=== PATIENT | female | born 1985 | race Caucasian/White ===

== ENCOUNTER 2024-10-05 13:46 | Outpatient (OUT) | payer SELFPAY ==
--- OUTSIDE RECORDS SUMMARY | 2024-10-05 13:49 | XMS_ITS | Encounter Summary ---
Author Organization [facility] Address [address] [place] [address] Care Team Providers Care Methods Specialist Engineer Name Role Phone Lara Pop DO Primary Care Provider [phone] Shelley Lazo MD Primary Care Provider [phone] Patty Nelson EQUIPMENT MAINT TECH Unavailable [phone] Encounter Details Date Type Department Care Team (Late st Contact Info) Description 12/16/2022 Abstract [facility] [address] [place] [address] Lara Pop DO [address] [facility] [place] [address] [place] [address] Social History Tobacco Use Types Packs/Day Years Used Date Smoking Tobacco: Every Day Cigarettes Smokeless Tobacco: Never Alcohol Use Standard Drinks/Week Comments Yes 1 (1 standard drink = 0.6 oz pur e alcohol) Humiliation, Afraid, Rape, and Kick questionnair e Answer Date Recorded Within the last year, have y ou been afraid of your partner or ex-partner? No 11/23/2022 Within the last year, have y ou been humiliated or emotionally abused in other ways by your partner or ex-partner? No Within the last year, have y ou been kicked, hit, slapped, or otherwise physically hurt by your partner or ex-partner? No 11/23/2022 Within the last year, have y ou been raped or forced to have any kind of sexual activity by your partner or ex-partner? No 11/23/2022 Social Connection and Isolat ion Panel [NHANES] Answer Date Recorded In a typical week, how many times do you talk on the phone with family, friends, or neighbors? Twice a week 11/23/2022 How often do you get togethe r with friends or relatives? More than three times a week 11/23/2022 How often do you attend chur or gnosticism services? Never 11/23/2022 Do you belong to any clubs o r organizations such as mandaen groups, unions, fraternal or athletic groups, or school groups? No 11/23/2022 How often do you attend meet ings of the clubs or organizations you belong to? Never 11/23/2022 Are you , , di vorced, , never , or living with a partner? 11/23/2022 AUDIT-C Answer Date Recorded Q1: How often do you have a drink containing alc ohol? Monthly or less 11/23/2022 Q2: How many drinks containi ng alcohol do you have on a typical day when you are drinking? 1 or 2 11/23/2022 Q3: How often do you have si x or more drinks on one occasion? Never 11/23/2022 Overall Financial Resource Strain (CARDIA) Answe r Date Recorded How hard is it for you to pa y for the very basics like food, housing, medical care, and heating? Not very hard 11/23/2022 PHQ-2 Answer Date Recorded Patient Health Questionnaire-2 Score 0 11/24/2022 [facility] - Occupational Stress Questionnaire Answer Date Recorded Do you feel stress - tense, restless, nervous, or anxious, or unable to sleep at night because your mind is troubled all the time - these days? Only a little 11/23/2022 Exercise Vital Sign Answer Date Recorde d On average, how many days pe r week do you engage in moderate to strenuous exercise (like a brisk walk)? 2 days 11/23/2022 On average, how many minutes do you engage in exercise at this level? 20 min 11/23/2022 Hunger Vital Sign Answer Date Recorded Within the past 12 months, y ou worried that your food would run out before you got the money to buy more. Never true 11/24/19 23 Within the past 12 months, t he food you bought just didn't last and you didn't have money to get more. Never true 11/23/2022 PRAPARE - Transportation Answer Date Re corded In the past 12 months, has l ack of transportation kept you from medical appointments or from getting medications? No 11/14 In the past 12 months, has l ack of transportation kept you from meetings, work, or from getting things needed for daily living? No 11/23/2022 Housing Stability Vital Sign Answer Ajswinder e Recorded In the last 12 months, was t here a time when you were not able to pay the mortgage or rent on time? No 11/23/2022 In the last 12 months, how many places have you lived? 1 11/23/2022 In the last 12 months, was t here a time when you did not have a steady place to sleep or slept in a [place] [facility] [place] (including now)? No 11/23/2022 Comments Unknown Sex and Gender Information Value Date Recorded Sex Assigned at Not on file Legal Sex Female 9:27 PM EDT Gender Identity Not on file Sexual Orientation Not on file COVID-19 Exposure Response Date Recorded In the last 10 days, have yo u been in contact with someone who was confirmed or suspected to have Coronavirus/COVID-19? No / Unsure 11/23/2022 3:05 PM EDT documented as of this encounter Plan of Treatment Not on file documented as of this encounter Visit Diagnoses Not on filedocumented in this encounter Care Teams Methods Specialist Engineer Relationship Specialty Start Date End Date Lara Pop DO PCP - General Family Medicine 11/19/22 06/24/23 Shelley Lazo MD [address] [facility] [place] [address] PCP - General Family Medicine 07/19/23 Patty Nelson NP [address] [place] [address] Nurse Practitioner Family Medicine 07/19/23 documented as of this encounter
--- OUTSIDE RECORDS SUMMARY | 2024-10-05 13:49 | XMS_ITS | Clinical Summary ---
Author Organization [facility] Healthcare Address [address] [place] [address] Care Team Providers Care Hourly Sign Language Interpreter Name Role Phone Shelley Lazo MD Primary Care Provider [phone] Patty Nelson DOCUMENT IMPROVEMENT SPECIALIST Unavailable [phone] Allergies No known active allergies Medications Levonorgestrel 20 MCG/DAY intrauterine device 1 each by Intrauterine route. Active albuterol HFA 90 mcg/act inhalerIndicatio ns:Cough, unspecified type,SOB (shortness of breath) Inhale 2 puffs every 4 (four) hours if needed for wheezing or shortness of breath 18 g 4 Active cetirizine (ZyrTEC) 10 MG tablet Take 1 tablet by mouth Daily Active escitalopram (Lexapro) 20 MG tabletIndication s:Moderate episode of recurrent major depressive disorder (CMS/HCC) Take 1 tablet (20 mg) by mouth Daily 90 tablet 3 4 025 Active ALPRAZolam (Xanax) 0.25 MG tabletIndication s:Grief (CMS/HCC),Genera lized anxiety disorder (CMS/HCC) Take 1 tablet (0.25 mg) by mouth Daily as needed for anxiety for up to 7 days 7 tablet 4 Active metFORMIN (Glucophage) 1000 MG tabletIndication s:PCOS (polycystic ovarian syndrome) Take 1 tablet (1,000 mg) by mouth in the morning and 1 tablet (1,000 mg) in the evening. Take with meals. 180 tablet 3 4 025 Active Active Problems Problem Noted Date Diagnosed Date History of smoking 08/01/2024 Chronic post-traumatic stress disorder (PTSD) Major depressive disorder, r ecurrent episode with anxious distress 04/03/2024 Gastroesophageal reflux disease 11/24/2022 Leukocytosis 11/24/2022 Morbid (severe) obesity due to excess calories 0 11/24/2022 PCOS (polycystic ovarian syndrome) 11/24/2022 Biliary colic 06/05/2022 Generalized anxiety disorder 12/19/2021 IUD (intrauterine device) in place 12/19/2021 Overview (11/24/2022): Mirena IUD inserted 12/19/21 by Dali De Santiago CNP Prediabetes 12/19/2021 Resolved Problems Problem Noted Date Diagnosed Date Resolved Date Cholelithiasis without obstruction 11/24/2022 08/01/2024 Cigarette nicotine dependenc e without complication 11/24/2022 03/06/2024 BMI 40.0-44.9, adult 12/19/2021 025 Smoker 11/27/2021 07/16/2023 Encounters Date Type Department Care Team Description 09/07/2024 Clinisync Result Encounter [facility] External Department Unsolicited Marilny Cain NP 08/17/2024 Telephone [facility] [address] [place] [address] Patty Nelson NP Results 08/08/2024 Telephone [facility] [address] [place] [address] Karon Howell MA 08/01/2024 9:00 AM EDT Office Visit [facility] [address] [place] [address] Patty Nelson NP Wellness examination (Primary Dx); Screening for thyroid disorder; Family history of thyroid disease; Gastroesophageal reflux disease without esophagitis; Other elevated white blood cell (WBC) count; Prediabetes; Impaired fasting glucose; Screening for lipid disorders; IUD (intrauterine device) in place; PCOS (polycystic ovarian syndrome); Morbid (severe) obesity due to excess calories (CMS/HCC); Major depressive disorder, recurrent episode with anxious distress (CMS/HCC); Generalized anxiety disorder (CMS/HCC) ; Chronic post-traumatic stress disorder (PTSD) (CMS/HCC); History of smoking 08/01/2024 Bamboo flowsheet [facility] [address] [place] [address] Patty Nelson NP 08/01/2024 Travel 07/10/2024 9:00 AM EST Office Visit [facility] [address] [place] [id number] Pump, Janeen, DOCUMENT IMPROVEMENT SPECIALIST Lower respiratory tract infection (Primary Dx); Generalized anxiety disorder (CMS/HCC) ; Major depressive disorder, recurrent episode with anxious distress (CMS/HCC) 07/10/2024 Bamboo flowsheet [facility] [address] [place] [id number] Pump, Janeen, DOCUMENT IMPROVEMENT SPECIALIST 07/10/2024 Travel from Last 3 Months Immunizations Immunization Administration Dates Next Due Hep B, adult 10/15/2022 Influenza, Injectable, MDCK, preservative free 1 Influenza, injectable, quadrivalent, preservativ e free 01/15/2023 Moderna Bivalent Booster Vaccination 10/26/2022, 09/28/2022 Tdap 10/15/2022 Family History Medical History Relation Name Comments Asthma Brother Qamar Asthma Daughter Martha Diabetes Father Geovanni Hypertension Father Geovanni Diabetes Maternal Grandfather Carlito Depression Mother Zara Diabetes Mother Zara Relation Name Status Comments Brother Qamar 1 Daughter Martha 2 Father Geovanni Alive Maternal Grandfather Carlito Mother Zara Alive Son 1 Social History Tobacco Use Types Packs/Day Years Used Date Smoking Tobacco: Former Cigarettes Q uit: 03/06/2023 Smokeless Tobacco: Never Alcohol Use Standard Drinks/Week [...] How often do you attend chur or mandaeism services? Never 11/23/2022 Do you belong to any clubs o r organizations such as congregation groups, unions, fraternal or athletic groups, or school groups? No 11/23/2022 How often do you attend meet ings of the clubs or organizations you belong to? Never 11/23/2022 Are you , , di vorced, , never , or living with a partner? 11/23/2022 AUDIT-C Answer Date Recorded Q1: How often do you have a drink containing alc ohol? Monthly or less 07/16/2023 Q2: How many drinks containi ng alcohol do you have on a typical day when you are drinking? 1 or 2 07/16/2023 Q3: How often do you have si x or more drinks on one occasion? Never 07/16/2023 Overall Financial Resource Strain (CARDIA) Answe r Date Recorded How hard is it for you to pa y for the very basics like food, housing, medical care, and heating? Not very hard 11/23/2022 PHQ-2 Answer Date Recorded Patient Health Questionnaire-2 Score 0 08/01/2024 [facility] [place] [facility] - Occupational Stress Questionnaire Answer Date Recorded [...] No 11/23/2022 Housing Stability Vital Sign Answer Jaswinder e Recorded In the last 12 months, [...] place to sleep or slept in a fci (including now)? No 11/23/2022 Comments Unknown Sex and Gender Information Value Date Recorded Sex Assigned at Not on file Legal Sex Female 9:27 PM EDT Gender Identity Not on file Sexual Orientation Not on file Last Filed Vital Signs Vital Sign Reading Time Taken Comments Blood Pressure 112/70 08/01/2024 8:57 AM EDT Pulse 68 08/01/2024 8:57 AM EDT Temperature 36.8 C (98.2 F) 06/26/2024 3:49 PM EST Respiratory Rate 18 01/19/2023 1:56 PM EDT Oxygen Saturation 98% 06/26/2024 3:4 9 PM EST room air, resting Inhaled Oxygen Concentration - - Weight 127 kg (279 lb 12.8 oz) 08/01/2024 8:57 AM EDT Height 165.1 cm (5' 5 ) 01/19/2023 1:56 PM EDT Body Mass Index 46.56 01/19/2023 1:56 PM EDT Plan of Treatment Health Maintenance Due Date Last Done Comments Pap Smear 12/18/2007 Cervical Cancer Screening 04/28/2026 HPV/Cotest 04/28/2026 04/28/2021 Influenza Vaccine Completed 02/16/2024, 01/15/2023 Goals Goal Patient Goal Type Associated Problems Recent Progress Patient-Stated? Author Help patient manage antidepressant medication Care Plan Patient on antidepressant monitoring plan No Patty Nelson NP Procedures Procedure Name Priority Date/Time Associated Diagnosis Comments QUANTIFERON-TB GOLD PLUS Routine 09/07/2024 11:00 AM EDT VARICELLA-ZOSTER V AB, IGG Routine 09/07/2024 11:00 AM EDT HEPATITIS B SURF AB QUANT Routine 09/07/2024 11:00 AM EDT MEASLES/MUMPS/RUBELLA IMMUNITY Routine 09/07/2024 11:00 AM EDT LIPID PANEL Routine 08/01/2024 9:21 AM EDT Wellness examination Screening for lipid disorders T4, FREE Routine 08/01/2024 9:21 AM EDT Wellness examination Screening for thyroid disorder Family history of thyroid disease TSH Routine 08/01/2024 9:21 AM EDT Wellness examination Screening for thyroid disorder Family history of thyroid disease COMPREHENSIVE METABOLIC PANEL Routine 08/01/2024 9:21 AM EDT Wellness examination HEMOGLOBIN A1C Routine 08/01/2024 9:21 AM EDT Wellness examination Prediabetes Impaired fasting glucose CBC Routine 08/01/2024 9:21 AM EDT Wellness examination Gastroesophageal reflux disease without esophagitis Other elevated white blood cell (WBC) count Q - THINPREP(R) TIS AND HPV MRNA E6/E7 RFL HPV 16,18/45 Routine 04/28/2021 from Last 3 Months or Most Recently Relevant to Health Maintenance Results * VARICELLA-ZOSTER V AB, IGG (09/07/2024 11:00 AM EDT) Pathologist [facility] VARICELLAZOST ER V AB, IGG Reactive Non Reactive TB Comment: Please note reference interval change A Reactive result is considered evidence of immunity to VZV. Reactive indicates that VZV IgG was detected consistent with previous infection and/or vaccination. A Non Reactive result indicates that VZV IgG was not detected suggesting that immunity has not been acquired. Performed at: [address] [id number] Musculoskeletal Physiotherapist: Jacky London PhD, Phone: [phone] 09/07/2024 11:0 0 AM EDT 09/07/2024 11:18 AM EDT Narrative CLINISYNC - 09/08/2024 8:11 AM EDT Marilyn Cain NP LAB BLOOD ORDERABLES Final Re sult [facility] * QUANTIFERON-TB GOLD PLUS (09/07/2024 11:00 AM EDT) Pathologist [facility] QUANTIFERON INCUBATION . TB Comment: Incubation performed. Reference Range: . QUANTIFERON-TB GOLD PLUS Negative Negative TB Comment: No response to M tuberculosis antigens detected. Infection with M tuberculosis is unlikely, but high risk individuals should be considered for additional testing (ATS/IDSA/CDC Clinical Practice Guidelines, 2017). The reference range is an Antigen minus Nil result of <0.35 IU/mL. Chemiluminescence immunoassay methodology Performed at: [address] [id number] Musculoskeletal Physiotherapist: Jacky London PhD, Phone: [phone] QUANTIFERON CRITERIA Comment . TB Comment: QuantiFERON-TB Gold Plus is a qualitative indirect test for M tuberculosis infection (including disease) and is intended for use in conjunction with risk assessment, radiography, and other medical and diagnostic evaluations. The QuantiFERON-TB Gold Plus result is determined by subtracting the Nil value from either TB antigen (Ag) value. The Mitogen tube serves as a control for the test. QUANTIFERON TB1 AG VALUE 0.08 . IU/mL TBH QUANTIFERON TB2 AG VALUE 0.08 . IU/mL TBH QUANTIFERON NIL VALUE 0.09 . IU/mL TBH QUANTIFERON MITOGEN VALUE >10.00 . IU/mL TBH 09/07/2024 11:0 0 AM EDT 09/07/2024 11:18 AM EDT Narrative CLINISYNC - 09/09/2024 6:08 AM EDT Marilyn Cain NP LAB BLOOD ORDERABLES Final Re sult Performing Organization Address [facility] Co de Phone Number [facility] * MEASLES/MUMPS/RUBELLA IMMUNITY (09/07/2024 11:00 AM EDT) [facility] RUBELLA ANTIBODIES, IGG 6.03 Immune >0.99 index TBH Comment: Non-immune <0.90 Equivocal 0.90 - 0.99 Immune >0.99 MEASLES ANTIBODIES, IGG >300.0 Immune >16.4 AU/mL TB Comment: Negative <13.5 Equivocal 13.5 - 16.4 Positive >16.4 Presence of antibodies to Rubeola is presumptive evidence of immunity except when acute infection is suspected. MUMPS ABS, IGG 65.3 Immune >10.9 AU/mL TB Comment: Negative <9.0 Equivocal 9.0 - 10.9 Positive >10.9 A positive result generally indicates past exposure to Mumps virus or previous vaccination. Performed at: [address] [id number] Musculoskeletal Physiotherapist: Jacky London PhD, Phone: [phone] 09/07/2024 11:0 0 AM EDT 09/07/2024 11:18 AM EDT Narrative CLINISYNC - 09/08/2024 8:11 AM EDT Marilyn Cain NP LAB BLOOD ORDERABLES Final Re sult Performing Organization Address [facility] Co de Phone Number [facility] * (ABNORMAL) HEPATITIS B SURF AB QUANT (09/07/2024 11:00 AM EDT) [facility] HEPATITIS B SURF AB QUANT <3.5(A) Immunity>1 0 mIU/mL [facility] Comment: Status of Immunity Anti-HBs Level Inconsistent with Immunity 0.0 - 10.0 Consistent with Immunity >10.0 Performed at: - [address] [id number] Musculoskeletal Physiotherapist: Jacky London PhD, Phone: [phone] 09/07/2024 11:0 0 AM EDT 09/07/2024 11:18 AM EDT Narrative CHIP - 09/08/2024 8:11 AM EDT us Marilyn Cain DOCUMENT IMPROVEMENT SPECIALIST LAB BLOOD ORDERABLES Final Re sult [facility] * CBC (08/01/2024 9:21 AM EDT) [facility] WHITE BLOOD CELL COUNT 8.2 3.8 - 10.8 Thousand/u L [facility] RED BLOOD CELL COUNT 4.74 3.80 - 5.10 Million/uL [facility] HEMOGLOBIN 13.7 11.7 - 15.5 g/dL [facility] HEMATOCRIT 42.1 35.0 - 45.0 % [facility] MCV 88.8 80.0 - 100.0 fL [facility] MCH 28.9 27.0 - 33.0 pg [facility] MCHC 32.5 32.0 - 36.0 g/dL [facility] Comment: For adults, a slight decrease in the calculated MCHC value (in the range of 30 to 32 g/dL) is most likely not clinically significant; however, it should be interpreted with caution in correlation with other red cell parameters and the patient's clinical condition. RDW 13.7 11.0 - 15.0 % [facility] PLATELET COUNT 378 140 - 400 Thousand/u L [facility] MPV 9.1 7.5 - 12.5 fL [facility] Blood Venous blood specimen / Unknown 08/01/2024 9:21 AM EDT 08/01/2024 3:15 PM EDT Narrative Resulting Agency Comment Performing Organization Information Site ID: QTW Name: [facility] Address: [address] [place] [phone] Director: Demetrice Navarro Patty Nelson NP LAB BLOOD ORDERABLES Final Result Performing Organization Address City/[facility]/ZIP Co de Phone Number [facility] * TSH (08/01/2024 9:21 AM EDT) Pathologist [facility] TSH 1.94 mIU/L [facility] Comment: Reference Range > or = 20 Years 0.40-4.50 Ranges First trimester 0.26-2.66 Second trimester 0.55-2.73 Third trimester 0.43-2.91 Blood Venous blood specimen / Unknown 08/01/2024 9:21 AM EDT 08/01/2024 3:15 PM EDT Narrative Resulting Agency Comment Performing Organization Information Site ID: QPT Name: [facility] Address: [address] [place] [address], [address] [place] [phone] Director: Cecil Singh MD Patty Nelson NP LAB BLOOD ORDERABLES Final Result Performing Organization Address [facility] de Phone Number [facility] * T4, free (08/01/2024 9:21 AM EDT) Pathologist [facility] T4, FREE 0.9 0.8 - 1.8 ng/dL [facility] Blood Venous blood specimen / Unknown 08/01/2024 9:21 AM EDT 08/01/2024 3:15 PM EDT Narrative Resulting Agency Comment Performing Organization Information Site ID: QPT Name: [facility] Address: [address] [place] [address], [address] [place] [phone] Director: Cecil Singh MD Patty Nelson NP LAB BLOOD ORDERABLES Final Result Performing Organization Address City/[facility]/ZIP Co de Phone Number [facility] * (ABNORMAL) Hemoglobin A1c (08/01/2024 9:21 AM EDT) Hemoglobin A1C 5.9(H) <5.7 % of total Hgb [facility] Comment: For someone without known diabetes, a hemoglobin A1c value between 5.7% and 6.4% is consistent with prediabetes and should be confirmed with a follow-up test. For someone with known diabetes, a value <7% indicates that their diabetes is well controlled. A1c targets should be individualized based on duration of diabetes, age, comorbid conditions, and other considerations. This assay result is consistent with an increased risk of diabetes. Currently, no consensus exists regarding use of hemoglobin A1c for diagnosis of diabetes for children. Blood Venous blood specimen / Unknown 08/01/2024 9:21 AM EDT 08/01/2024 3:15 PM EDT Narrative Resulting Agency Comment Performing Organization Information Site ID: QPT Name: [facility] Address: [address] [place] [address], [address] [place] [phone] Director: Cecil Singh MD Patty Nelson NP LAB BLOOD ORDERABLES Final Result [facility] * (ABNORMAL) Lipid panel (08/01/2024 9:21 AM EDT) Pathologist [facility] CHOLESTEROL, TOTAL 136 <200 mg/dL [facility] HDL CHOLESTEROL 45(L) > OR = 50 mg/dL [facility] TRIGLYCERIDES 71 <150 mg/dL [facility] LDL-CHOLESTEROL 76 mg/dL (calc) [facility] Comment: Reference range: <100 Desirable range <100 mg/dL for primary prevention; <70 mg/dL for patients with CHD or diabetic patients with > or = 2 CHD risk factors. LDL-C is now calculated using the Harrison-oLri calculation, which is a validated novel method providing better accuracy than the Friedewald equation in the estimation of LDL-C. Harrison SS et al. MARK. 2013;310(19): 6894-1989 (http://education.DataMotion.Numonyx/faq/KEZ025) CHOL/HDLC RATIO 3.0 <5.0 (calc) [facility] NON HDL CHOLESTEROL 91 <130 mg/dL (calc) [facility] Comment: For patients with diabetes plus 1 major ASCVD risk factor, treating to a non-HDL-C goal of <100 mg/dL (LDL-C of <70 mg/dL) is considered a therapeutic option. Blood Venous blood specimen / Unknown 08/01/2024 9:21 AM EDT 08/01/2024 3:15 PM EDT Narrative Resulting Agency Comment Performing Organization Information Site ID: QPT Name: [facility] Address: [address] [place] [address], [address] [place] [phone] Director: Cecil Singh MD Patty Nelson NP LAB BLOOD ORDERABLES Final Result [facility] * (ABNORMAL) Comprehensive metabolic panel (08/01/2024 9:21 AM EDT) Glucose 101(H) 65 - 99 mg/dL [facility] Comment: Fasting reference interval For someone without known diabetes, a glucose value between 100 and 125 mg/dL is consistent with prediabetes and should be confirmed with a follow-up test. BUN 12 7 - 25 mg/dL [facility] Creatinine 0.71 0.50 - 0.97 mg/dL [facility] EGFR 112 > OR = 60 mL/min/1. 73m2 [facility] BUN/CREATININE RATIO SEE NOTE: 6 - 22 (calc) [facility] Comment: Not Reported: BUN and Creatinine are within reference range. Sodium 138 135 - 146 mmol/L [facility] Potassium, Bld 4.5 3.5 - 5.3 mmol/L [facility] Chloride 104 98 - 110 mmol/L [facility] Carbon Dioxide 29 20 - 32 mmol/L [facility] Calcium 8.7 8.6 - 10.2 mg/dL [facility] PROTEIN, TOTAL 6.7 6.1 - 8.1 g/dL [facility] ALBUMIN 3.8 3.6 - 5.1 g/dL [facility] GLOBULIN 2.9 1.9 - 3.7 g/dL (calc) [facility] ALBUMIN/GLOBULIN RATIO 1.3 1.0 - 2.5 (calc) [facility] BILIRUBIN, TOTAL 0.4 0.2 - 1.2 mg/dL [facility] ALKALINE PHOSPHATASE 63 31 - 125 U/L [facility] AST 15 10 - 30 U/L [facility] ALT 22 6 - 29 U/L [facility] Blood Venous blood specimen / Unknown 08/01/2024 9:21 AM EDT 08/01/2024 3:15 PM EDT Narrative Resulting Agency Comment Performing Organization Information Site ID: QTW Name: [facility] Address: [place] [address] Director: Demetrice Navarro Patty Nelson DOCUMENT IMPROVEMENT SPECIALIST LAB BLOOD ORDERABLES Final Result [facility] * Q - THINPREP(R) TIS AND HPV MRNA E6/E7 RFL HPV 16,18/45 (04/28/2021) CLINICAL INFORMATION: None given [facility] LMP: None given [facility] PREV. PAP: None given [facility] PREV. BX: None given [facility] SOURCE: None given [facility] STATEMENT OF ADEQUACY: SEE NOTE [facility] Comment: Satisfactory for evaluation. Endocervical/transformation zone component present. INTERPRETATION/RE SULT: Negative for intraepithelial lesion or malignancy. [facility] COMMENT: This Pap test has been evaluated with computer assisted technology. [facility] ELEMENTARY ELL TEACHER: SEE NOTE NO [facility] Comment: CYNDEE MEYER(ASCP) CT screening location: [place] [address]. COMMENT SEE NOTE [facility] Comment: EXPLANATORY NOTE: The Pap is a screening test for cervical cancer. It is not a diagnostic test and is subject to false negative and false positive results. It is most reliable when a satisfactory sample, regularly obtained, is submitted with relevant clinical findings and history, and when the Pap result is evaluated along with historic and current clinical information. HPV MRNA E6/E7 Not Detected Not Detected [facility] Comment: Methodology: Composite Worker-Mediated Amplification This assay detects E6/E7 viral messenger RNA (mRNA) from 14 high-risk HPV types (16,18,31,33,35,39,45,51,52,56,58,59,66,68). The analytical performance characteristics of this assay have been determined by [facility]. The modifications have not been cleared or approved by the FDA. This assay has been validated pursuant to the CLIA regulations and is used for clinical purposes. For additional information, please refer to http://education.[employer].com/faq/KIW731f3 (This link if provided for information/ educational purposes only.) 04/28/2021 Lara Pop DO [facility] Final Result [facility] from Last 3 Months or Most Recently Relevant to Health Maintenance Additional Health Concerns Active Problems Noted Date Diagnosed Date Patient on antidepressant monitoring plan 2023 Insurance BCBS Care Teams Hourly Sign Language Interpreter Relationship Specialty Start Date End Date Shelley Lazo MD [address] [place] [address] PCP - General Family Medicine 07/19/23 Patty Nelson NP [address] [place] [address] Nurse Practitioner Family Medicine 07/19/23
[2024-10-05] MEDS: [UNRECOGNIZED DRUG - OTHER] IM (14:00)
== END 2024-10-05 13:47 | disposition home or self-care (01) ==
LOC: VACCLI 13:47
PROVIDERS: Visit Provider Nurse Practitioner Family
DX: Z23 Encounter for immunization (principal)
CPT/HCPCS: 90746

== ENCOUNTER 2024-11-15 13:50 | Outpatient (OUT) | payer OTHER, SELFPAY ==
--- OUTSIDE RECORDS SUMMARY | 2024-11-03 11:00 | XMS_ITS | Encounter Summary ---
Author Organization [facility] Address [address] [place] [address] Care Team Providers Care Assistant Spa Director Name Role Phone Shelley Lazo MD Primary Care Provider [phone] Patty Nelson LEAD ASSISTANT MANAGER Unavailable [phone] Reason for Visit * Reason Comments Follow-up Weight Encounter Details Date Type Department Care Team (Late st Contact Info) Description 11/03/2024 11:00 AM EDT Office Visit [facility] [address] [place] [id number] Patty Nelson NP [address] [place], [place] [id number] Encounter for weight loss counseling (Primary Dx); PCOS (polycystic ovarian syndrome); Morbid (severe) obesity due to excess calories ([facility]); Unable to lose weight; Skin tag Social History Tobacco Use Types Packs/Day Years [...] How often do you attend chur or taoist services? Never 11/23/2022 Do you belong to any clubs o r organizations such as hinduism groups, unions, fraternal or athletic groups, or [...] Recorded Patient Health Questionnaire-2 Score 0 08/01/2024 [facility] - Occupational Stress [...] place to sleep or slept in a chcf (including now)? No 11/23/2022 Comments Unknown Sex and Gender Information Value Date Recorded Sex Assigned at Not on file Legal Sex Female 9:27 PM EDT Gender Identity Not on file Sexual Orientation Not on file documented as of this encounter Last Filed Vital Signs Vital Sign Reading Time Taken Comments Blood Pressure 124/80 11/03/2024 10:58 AM EDT Pulse 68 11/03/2024 10:58 AM EDT Temperature - - Respiratory Rate - - Oxygen Saturation - - Inhaled Oxygen Concentration - - Weight 121 kg (266 lb 3.2 oz) 11/03/2024 10:58 A M EDT Height - - Body Mass Index 44.3 01/19/2023 1:56 PM EDT documented in this encounter Progress Notes * Patty Nelson NP - 11/03/2024 11:00 AM EDT Images from the original note were not included. Aaliyah Lee is a 38 y.o. female presents with chief complaint of Follow- up (Weight ) HPI: HPI History of Present Illness The patient is a 38-year-old female who presents to the office for a 1-month follow-up on Adipex. 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 Her weight was 279.8 pounds on 08/01/2024 and is now down to 266.2 pounds. She reports an improvement in stress levels and has been maintaining a healthy diet, although adjusting to midnight shifts remains challenging. Her daily intake includes a microwavable meal, apple sauce, peanut butter crackers, and ample water. She monitors her physical activity using a watch, recording over 12,000 steps on her busiest day. No adverse effects from the medication, such as palpitations or chest pain, have been experienced. Her sleep pattern is generally good, and she takes her medication upon waking, regardless of the time. She consumes 1 to 2 sodas daily and occasionally uses Monster energy drinks during her night shifts. Flavored water enhancers are also used. No mood disturbances are reported, and she believes her current mood is the best it has been in a long time. Her next weight loss goal is to achieve a weight below 250 pounds. Exercise has not yet been incorporated into her routine. Increased water intake has been beneficial in preventing dry mouth at work. She has expressed interest in having a skin tag removed from her right armpit, which she frequentlycatches while shaving. She is not currently on any anticoagulant therapy. She also has a skin tag on her scalp, which she has been treating with a freeze- away product. SOCIAL HISTORY She works as a registered nurse. SUBJECTIVE: MEDICATIONS: Current Outpatient Medications Medication Instructions albuterol HFA 90 mcg/act inhaler 2 puffs, Inhalation, Every 4 hours PRN ALPRAZolam (XANAX) 0.25 mg, Oral, Daily PRN cetirizine (ZyrTEC) 10 MG tablet 1 tablet, Daily escitalopram (LEXAPRO) 20 mg, Oral, Daily Levonorgestrel 20 MCG/DAY intrauterine device 1 each metFORMIN (GLUCOPHAGE) 1,000 mg, Oral, 2 times daily with meals phentermine (ADIPEX-P) 37.5 mg, Oral, Daily before breakfast ALLERGIES: No Known Allergies History: Past Medical History: Diagnosis Date Anxiety Cholelithiasis without obstruction 11/24/2022 Cigarette nicotine dependence without complication 11/24/2022 GERD (gastroesophageal reflux disease) Obesity Past Surgical History: Procedure Laterality Date CHOLECYSTECTOMY Family History Problem Relation Name Age of Onset Diabetes Mother Zara Depression Mother Zara Diabetes Father Geovanni Hypertension Father Geovanni Asthma Brother Qamar Asthma Daughter Martha Diabetes Maternal Grandfather Carlito Social History Socioeconomic History Marital status: Spouse name: Not on file Number of children: Not on file Years of education: Not on file Highest education level: Not on file Occupational History Not on file Tobacco Use Smoking status: Former Current packs/day: 0.00 Types: Cigarettes Quit date: 03/06/2023 Years since quittin.6 Smokeless tobacco: Never Vaping Use Vaping status: Never Used Substance and Sexual Activity Alcohol use: Yes Alcohol/week: 1.0 standard drink of alcohol Types: 1 Standard drinks or equivalent per week Drug use: Never Sexual activity: Yes Partners: Male control/protection: I.U.D. Other Topics Concern Not on file Social History Narrative Not on file Social Drivers of Health Financial Resource Strain: Low Risk (11/23/2022) Overall Financial Resource Strain (CARDIA) Difficulty of Paying Living Expenses: Not very hard Food Insecurity: No Food Insecurity (08/07/2024) Received from [facility] Hunger Screening Within the past 12 months we worried whether our food would run out before we got money to buy more.: Never True Within the past 12 months the food we bought just didn't last and we didn't have money to get more.: Never True Transportation Needs: No Transportation Needs (11/23/2022) PRAPARE - Transportation Lack of Transportation (Medical): No Lack of Transportation (Non-Medical): No Physical Activity: Insufficiently Active (11/23/2022) Exercise Vital Sign Days of Exercise per Week: 2 days Minutes of Exercise per Session: 20 min Stress: No Stress Concern Present (11/23/2022) [place] [employer] [facility] Occupational [facility] - Occupational Stress Questionnaire Feeling of Stress : Only a little Social Connections: Moderately Isolated (11/23/2022) Social Connection and Isolation Panel [NHANES] Frequency of Communication with Friends and Family: Twice a week Frequency of Social Gatherings with Friends and Family: More than three times a week Attends Muslim Services: Never Active Member of Clubs or Organizations: No Attends Club or Organization Meetings: Never Marital Status: Intimate Partner Violence: Not At Risk (11/23/2022) Humiliation, Afraid, Rape, and Kick questionnaire Fear of Current or Ex-Partner: No Emotionally Abused: No Physically Abused: No Sexually Abused: No Housing Stability: Low Risk (11/23/2022) Housing Stability Vital Sign Unable to Pay for Housing in the Last Year: No Number of Places Lived in the Last Year: 1 Unstable Housing in the Last Year: No I have reviewed and reconciled the history and medication list with the patient today. REVIEW OF SYMPTOMS: Review of Systems Constitutional: Negative for activity change, appetite change and fatigue. HENT: Negative. Respiratory: Negative for cough, shortness of breath and wheezing. Cardiovascular: Negative for chest pain and palpitations. Gastrointestinal: Negative for abdominal pain, diarrhea and nausea. Genitourinary: Negative. Musculoskeletal: Negative. Skin: Negative for color change, rash and wound. Admits skin tag to right armpit that gets caught on razor when shaving Psychiatric/Behavioral: Negative. OBJECTIVE: Results 04/03/2024 11:00 AM 05/02/2024 9:18 AM 06/26/2024 3:49 PM 07/10/2024 9:01 AM 08/01/2024 8:57 AM 10/06/2024 7:00 AM 11/03/2024 10:58 AM Vitals BMI 47.33 kg/m2 47.06 kg/m2 46.16 kg/m2 46.56 kg/m2 44.3 kg/m2 BSA (m2) 2.43 m2 2.42 m2 2.4 m2 2.41 m2 2.36 m2 Systolic 130 126 136 116 112 110 124 Diastolic 74 84 86 82 70 80 80 Heart Rate 76 80 107 88 68 68 SpO2 98 % Temp 98.2 °F Weight (lb) 284.4 282.8 277.4 279.8 266.2 Visit Report Report Report Report Report Report Report Physical Exam Vitals reviewed. Constitutional: General: She is not in acute distress. Appearance: Normal appearance. She is obese. She is not ill-appearing. Cardiovascular: Rate and Rhythm: Normal rate and regular rhythm. Heart sounds: No murmur heard. Pulmonary: Effort: Pulmonary effort is normal. No respiratory distress. Breath sounds: Normal breath sounds. No wheezing or rhonchi. Abdominal: General: Bowel sounds are normal. There is no distension. Palpations: Abdomen is soft. Tenderness: There is no abdominal tenderness. Musculoskeletal: Right lower leg: No edema. Left lower leg: No edema. Skin: General: Skin is warm and dry. Findings: No rash. Comments: Skin tag to right axilla, no surrounding erythema noted Neurological: Mental Status: She is alert. Mental status is at baseline. Psychiatric: Mood and Affect: Mood normal. Behavior: Behavior normal. Thought Content: Thought content normal. Judgment: Judgment normal. Physical Exam ASSESSMENT AND PLAN: Assessment/Plan Diagnoses and all orders for this visit: Encounter for weight loss counseling - phentermine (Adipex-P) 37.5 MG tablet; Take 1 tablet (37.5 mg) by mouth in the morning. Take before meals. PCOS (polycystic ovarian syndrome) - phentermine (Adipex-P) 37.5 MG tablet; Take 1 tablet (37.5 mg) by mouth in the morning. Take before meals. Morbid (severe) obesity due to excess calories ([facility]) - phentermine (Adipex-P) 37.5 MG tablet; Take 1 tablet (37.5 mg) by mouth in the morning. Take before meals. Unable to lose weight - phentermine (Adipex-P) 37.5 MG tablet; Take 1 tablet (37.5 mg) by mouth in the morning. Take before meals. Skin tag - Tissue exam; Future Assessment & Plan 1. Weight management. - Her weight has decreased from 279.8 to 266.2 since 08/01/2024. - Reports no negative side effects from the medication, such as heart racing or chest pain. Blood pressure is stable at 124/80. - Advised to continue her current regimen of Adipex, taking it when she wakes up regardless of her work schedule. Encouraged to start working out and reduce soda intake to help achieve her goal of getting under 250 pounds. - Prescription refill for Adipex will be provided. OARRS reviewed, no red flags, rx sent. 2. Skin tag. - A skin tag in her right armpit was excised during this visit. - Specimen will be sent to the pathology lab for analysis. - Advised to apply antibiotic cream tonight and tomorrow, and to clean the area with soap and water. - If there is any bleeding, she should change the dressing. Follow-up The patient will follow up in 1 month. PROCEDURE Procedure: Skin tag excision, right armpit All questions were answered and agreement to proceed was given after the following Pre-Procedure details were reviewed: - Risks and Benefits: Bleeding, infection, and the benefit of removing the skin tag for comfort andease of shaving. - Consent: Verbal consent obtained. Intra-Procedure: - Site Preparation: Cleaned with alcohol. - Anesthesia: None used as patient preferred to proceed without numbing. - Medication: Antibiotic cream applied post-excision. - Hemostasis: Pressure applied to control bleeding. - Dressing: Bandage applied. Post-Procedure: - Tolerance Level: Patient tolerated the procedure well, reporting minimal discomfort. - Home Care Instructions: Change the dressing as needed, apply antibiotic cream tonight and tomorrow, and clean with soap and water. 30 minutes spent reviewing chart, assessing patient and documenting. Follow up in about 4 weeks (around 12/01/2024) for med k. documented in this encounter Plan of Treatment Upcoming Encounters Date Type Department Care Team (Late st Contact Info) Description 12/01/2024 3:00 PM EDT Office Visit [facility] [address] [place] [address] Patty Nelson NP [address] [place] [address] documented as of this encounter Goals Goal Patient Goal Type Associated Problems Recent Progress Patient-Stated? Author Help patient manage antidepressant medication Care Plan Patient on antidepressant monitoring plan No Patty Nelson NP documented as of this encounter Procedures Procedure Name Priority Date/Time Associated Diagnosis Comments TISSUE EXAM Routine 11/03/2024 11:21 AM EDT Skin tag documented in this encounter Results * Tissue exam (11/03/2024 11:21 AM EDT) PATHOLOGIST [facility] Comment: Daniel Carmen MD Board certified in Dermatopathology, Cytopathology, Anatomic Pathology, and Clinical Pathology (electronic signature) For questions regarding this report call [facility] [phone] Pathologist Release Date/Time: 11/07/2024 02:40PM A SOURCE [facility] Comment:RIGHT ARMPIT A PROCEDURE BIOPSY [facility] A GROSS DESCRIPTION [facility] Comment: Received in 10% neutral buffered formalin is a biopsy of tissue measuring 5 x 4 x 2 mm. It was inked, bisected, and submitted into 1 tissue block. This gross description meets regulatory standards for positive identification using two patient identifiers. /bjm/is A MICRO DESCRIPTION [facility] Comment: The specimen displays a small pedunculated papule with variable epidermal acanthosis and lack of adnexal structures within the dermal stroma. /bjm A DIAGNOSIS [facility] Comment: FIBROEPITHELIAL POLYP/SKIN TAG Tissue 11/03/2024 11:2 1 AM EDT 11/04/2024 3:17 AM EDT Narrative Resulting Agency Comment Performing Organization Information Site ID: [id number] Name: [facility] Address: [address] [place] [address], [address] [place] [address] Director: Daniel Carmen Patty Nelson NP LAB PATHOLOGY ORDERABLES F inal Result [facility] documented in this encounter Visit Diagnoses Diagnosis Encounter for weight loss counseling- Primary PCOS (polycystic ovarian syndrome) Polycystic ovaries Morbid (severe) obesity due to excess calories ([facility]) Unable to lose weight Skin tag Unspecified hypertrophic and atrophic condition of skin documented in this encounter Additional Health Concerns Active Problems Noted Date Diagnosed Date Patient on antidepressant monitoring plan 2023 Assessment Noted Time PHQ-9 Depression Total Score: 13 04/03/ 024 11:00 AM EST documented as of this encounter Care Teams Assistant Spa Director Relationship Specialty Start Date End Date Shelley Lazo MD PCP - General Family Medicine 07/19/23 Patty Nelson NP [address] [place] [address] Nurse Practitioner Family Medicine 07/19/23 documented as of this encounter
--- OUTSIDE RECORDS SUMMARY | 2024-11-15 13:54 | XMS_ITS | Encounter Summary ---
Author Organization [facility] Address [address] [place] [address] Care Team Providers Care Ornamental Ironworking Supervisor Name Role Phone Shelley Lazo MD Primary Care Provider [phone] Patty Nelson TALEND DEVELOPER Unavailable [phone] Encounter Details Date Type Department Care Team (Latest Contact Info) Description 11/03/2024 Travel Social History Tobacco Use Types Packs/Day Years [...] 11/23/2022 How often do you attend chur ch or zoroastrianism services? Never 11/23/2022 Do you belong to any clubs o r organizations such as episcopal groups, unions, fraternal or athletic groups, or [...] Recorded Patient Health Questionnaire-2 Score 0 08/01/2024 [facility] of Occupat ional Health - Occupational Stress [...] on file documented as of this encounter Plan of Treatment Upcoming Encounters Date Type Department Care Team (Late st Contact Info) Description 12/01/2024 3:00 PM EDT Office Visit [facility] [address] [place] [address] Patty Nelson NP [address] [place], [place] [id number] documented as of this encounter Goals Goal Patient Goal Type Associated Problems Recent Progress Patient-Stated? Author Help patient manage antidepressant medication Care Plan Patient on antidepressant monitoring plan No Patty Nelson NP documented as of this encounter Visit Diagnoses Not on filedocumented in this encounter Additional Health Concerns Active Problems Noted Date Diagnosed Date Patient on antidepressant monitoring plan 2023 Assessment Noted Time PHQ-9 Depression Total Score: 13 04/03/ 024 11:00 AM EST documented as of this encounter Care Teams Ornamental Ironworking Supervisor Relationship Specialty Start Date End Date Shelley Lazo MD PCP - General Family Medicine 07/19/23 Patty Nelson NP [address] [place], [place] [id number] Nurse Practitioner Family Medicine 07/19/23 documented as of this encounter
--- OUTSIDE RECORDS SUMMARY | 2024-11-15 13:54 | XMS_ITS | Encounter Summary ---
Author Organization [facility] Address [address] [place] [address] Care Team Providers Care Arts And Crafts Instructor Name Role Phone Shelley Lazo MD Primary Care Provider [phone] Patty Nelson STUDENT LIFE ADVISOR Unavailable [phone] Encounter Details Date Type Department Care Team (Late st Contact Info) Description 11/07/2024 Results Follow-Up [facility] [address] [place] [address] Mireya Strickland LPN Social History Tobacco Use Types Packs/Day Years [...] often do you attend chur ch or latter-day services? Never 11/23/2022 Do you belong to any clubs o r organizations such as buddhist groups, unions, fraternal or athletic groups, or [...] Patient Health Questionnaire-2 Score 0 08/01/2024 [facility] of Occupat ional Health - Occupational Stress [...] place to sleep or slept in a fdc (including now)? No 11/23/2022 Comments Unknown Sex and Gender Information Value Date Recorded Sex Assigned at Not on file Legal Sex Female 9:27 PM EDT Gender Identity Not on file Sexual Orientation Not on file documented as of this encounter Miscellaneous Notes * Telephone Encounter - Mireya Strickland LPN - 11/07/2024 3:41 PM EDT Pt notified. * Telephone Encounter - Mireya Strickland LPN - 11/07/2024 3:40 PM EDT ----- Message from Patty Nelson sent at 11/07/2024 3:34 PM EDT ----- Please let patient know skin tag biopsy did not show concerns. ----- Message ----- From: [facility] Results In Sent: 11/07/2024 3:19 PM EDT To: Patty Nelson NP documented in this encounter Plan of Treatment Upcoming Encounters Date Type Department Care Team (Late st Contact Info) Description 12/01/2024 3:00 PM EDT Office Visit [facility] [address] [facility] [place] [address] Patty Nelson NP [address] [place] [address] documented as of this encounter Goals Goal [...] Noted Time PHQ-9 Depression Total Score: 13 024 11:00 AM EST documented as of this encounter Care Teams Arts And Crafts Instructor Relationship Specialty Start Date End Date Clifton, Shelley Gifford MD PCP - General Family Medicine 07/19/23 Patty Nelson NP [address] [place] [address] Nurse Practitioner Family Medicine 07/19/23 documented as of this encounter
--- OUTSIDE RECORDS SUMMARY | 2024-11-15 13:54 | XMS_ITS | Clinical Summary ---
Author Organization [facility] tem Address [id number] [place] [address] Care Team Providers Care Autocad Operator Name Role Phone NelsonJanes truongantha GWEN Primary Care Provider Allergies No known active allergies Medications * This document contains information received from the source organization and may not represent a complete record from that organization. escitalopram (LEXAPRO) 10 mg tablet Take 2 tablets (20 mg total) by mouth in the morning. Active levonorgestreL (MIRENA) 20 mcg/24 hours (7 yrs) 52 mg IUD 1 each by intrauterine route once. Active ibuprofen (MOTRIN) 600 mg tablet Take 1 tablet (600 mg total) by mouth every 6 (six) hours. 30 tablet Active cetirizine (ZyrTEC) 10 MG chewable tablet Chew 1 tablet (10 mg total) and swallow in the morning. Active Active Problems Problem Noted Date Diagnosed Date Major depressive disorder, r ecurrent episode with anxious distress 04/03/2024 Chronic post-traumatic stress disorder (PTSD) PCOS (polycystic ovarian syndrome) 11/24/2022 Biliary colic 06/05/2022 Prediabetes 12/19/2021 BMI 40.0-44.9, adult 12/19/2021 IUD (intrauterine device) in place 12/19/2021 Overview (12/19/2021): Mirena IUD inserted 12/19/21 by Dali De Santiago CNP Smoker 11/27/2021 Resolved Problems Problem Noted Date Diagnosed Date Resolved Date Generalized anxiety disorder 12/19/2021 04/03/2024 Family History Medical History Relation Name Comments Diabetes Father Hypertension Father Heart attack Maternal Grandmother Diabetes Mother Hypertension Mother Thyroid Issues Mother Relation Name Status Comments Father Alive Maternal Grandmother Mother Alive Social History Tobacco Use Types Packs/Day Years Used Date Smoking Tobacco: Former Cigarettes 0.3 16 Q uit: 02/2023 Smokeless Tobacco: Never Tobacco Cessation:Counseling Given: Not Answered Alcohol Use Standard Drinks/Week Comments No 0 (1 standard drink = 0.6 oz pur e alcohol) AUDIT-C Answer Date Recorded Frequency of Alcohol Consumption Never 07/07/2018 Average Number of Drinks Not on file 019 Frequency of Binge Drinking Not on file 06/18 Childcare Answer Date Recorded Childcare Unknown 10/26/2018 Employment Answer Date Recorded Employment Unknown 10/26/2018 Hunger Screening Answer Date Recorded Within the past 12 months we worried whether our food would run out before we got money to buy more. Never True 08/07/2024 Within the past 12 months th e food we bought just didn't last and we didn't have money to get more. Never True 08/07/2024 Purpose - Life Answer Date Recorded Purpose and direction in life Unknown Comments No Sex and Gender Information Value Date Recorded Sex Assigned at Not on file Legal Sex Female 11:35 AM EDT Gender Identity Not on file Sexual Orientation Not on file Last Filed Vital Signs Vital Sign Reading Time Taken Comments Blood Pressure 131/75 08/07/2024 10:02 PM EDT Pulse 76 08/07/2024 10:02 PM EDT Temperature 36.7 C (98.1 F) 08/07/2024 10:02 PM EDT Respiratory Rate 14 08/07/2024 10:02 PM EDT Oxygen Saturation 100% 08/07/2024 10:02 PM EDT Inhaled Oxygen Concentration - - Weight 126.6 kg (279 lb) 08/07/2024 7:06 PM EDT Height 165.1 cm (5' 5 ) 08/07/2024 7:06 PM EDT Body Mass Index 46.43 08/07/2024 7:06 PM EDT Plan of Treatment Health Maintenance Due Date Last Done Comments Depression Screening 1998 Adult BMI Follow Up Plan 2004 Pap Smear 12/18/2007 COVID-19 Vaccine (3 - 2024-25 season) 01/16/202404/2023, 09/28/2022 Influenza Vaccine 01/15/2025 02/16/2024, 01/15/2023 Adult BMI Screening 08/07/2025 08/07/2024 Tobacco Screening 08/07/2025 08/07/2024 DTaP,Tdap and Td Vaccines (2 - Td or Tdap) 10/15/2032 10/15/2022 Medical Devices Not on file Insurance ANTHEM Care Teams Autocad Operator Relationship Specialty Start Date End Date Patty Nelson APRN-CNP [address] [place] [address] PCP - General Family Medicine 02/15/24
--- OUTSIDE RECORDS SUMMARY | 2024-11-15 13:54 | XMS_ITS | Clinical Summary ---
Author Organization [facility] Address [address] [place] [address] Care Team Providers Care Housing Assistant Name Role Phone Shelley Lazo MD Primary Care Provider [phone] Patty Nelson CUTTING AND PRINTING MACHINE OPERATOR Unavailable [phone] Allergies No known active allergies Medications Levonorgestrel 20 MCG/DAY intrauterine device 1 each by Intrauterine route. Active albuterol HFA 90 mcg/act inhalerIndicatio ns:Cough, unspecified type,SOB (shortness of breath) Inhale 2 puffs every 4 (four) hours if needed for wheezing or shortness of breath 18 g 10/12/19 24 Active cetirizine (ZyrTEC) 10 MG tablet Take 1 tablet by mouth Daily Active escitalopram (Lexapro) 20 MG tabletIndication s:Moderate episode of recurrent major depressive disorder (HCC) Take 1 tablet (20 mg) by mouth Daily 90 tablet 3 03/06/20 24 025 Active ALPRAZolam (Xanax) 0.25 MG tabletIndication s:Grief,Generali zed anxiety disorder Take 1 tablet (0.25 mg) by mouth Daily as needed for anxiety for up to 7 days 7 tablet 03/23/20 24 Active metFORMIN (Glucophage) 1000 MG tabletIndication s:PCOS (polycystic ovarian syndrome) Take 1 tablet (1,000 mg) by mouth in the morning and 1 tablet (1,000 mg) in the evening. Take with meals. 180 tablet 3 05/04/20 24 025 Active phentermine (Adipex-P) 37.5 MG tabletIndication s:PCOS (polycystic ovarian syndrome),Morbid (severe) obesity due to excess calories (CMS-HCC),Encoun ter for weight loss counseling,Unabl e to lose weight Take 1 tablet (37.5 mg) by mouth in the morning. Take before meals. 30 tablet 11/04/19 25 025 Active phentermine (Adipex-P) 37.5 MG tabletIndication s:PCOS (polycystic ovarian syndrome),Morbid (severe) obesity due to excess calories (CMS-HCC),Encoun ter for weight loss counseling,Unabl e to lose weight Take 1 tablet (37.5 mg) by mouth in the morning. Take before meals. 30 tablet 10/07/19 25 025 Discontin ued(Reord er) Active Problems Problem Noted Date Diagnosed Date [...] Encounters Date Type Department Care Team Description 11/07/2024 Results Follow-Up [facility] [address] [place] [address] Mireya Strickland LPN 11/03/2024 11:00 AM EDT Office Visit [facility] [address] [place] [address] Patty Nelson NP Encounter for weight loss counseling (Primary Dx); PCOS (polycystic ovarian syndrome); Morbid (severe) obesity due to excess calories ([facility]-HCC); Unable to lose weight; Skin tag 11/03/2024 Bamboo flowsheet [facility] [address] [place] [address] Patty Nelson NP 11/03/2024 Travel 10/06/2024 Telephone [facility] [address] [place] [address] Patty Nelson NP adipex 09/07/2024 Clinisync Result Encounter [facility] External Department Unsolicited Marilyn Cain NP 08/17/2024 Telephone [facility] [address] [place] [address] Patty Nelson, JERSON Results from Last 3 Months Immunizations Immunization Administration [...] Name Status Comments Brother Qamar 1 Daughter Ellaena 2 Father Geovanni Alive Maternal Grandfather Carlito [...] How often do you attend chur or latter day services? Never 11/23/2022 Do you belong to any clubs o r organizations such as congregational groups, unions, fraternal or athletic groups, or [...] Recorded Patient Health Questionnaire-2 Score 0 08/01/2024 [facility] Occupat ional Health - Occupational Stress [...] place to sleep or slept in a care home (including now)? No 11/23/2022 Comments Unknown Sex and Gender Information Value Date Recorded Sex Assigned at Not on file Legal Sex Female 9:27 PM EDT Gender Identity Not on file Sexual Orientation Not on file Last Filed Vital Signs Vital Sign Reading Time Taken Comments Blood Pressure 124/80 11/03/2024 10:58 AM EDT Pulse 68 11/03/2024 10:58 AM EDT Temperature 36.8 C (98.2 F) 06/26/2024 3:49 PM EST Respiratory Rate 18 01/19/2023 1:56 PM EDT Oxygen Saturation 98% 06/26/2024 3:4 9 PM EST room air, resting Inhaled Oxygen Concentration - - Weight 121 kg (266 lb 3.2 oz) 11/03/2024 10:58 AM EDT Height 165.1 cm (5' 5 ) 01/19/2023 1:56 PM EDT Body Mass Index 44.3 01/19/2023 1:56 PM EDT Plan of Treatment Upcoming Encounters Date Type Department Care Team (Late st Contact Info) Description 12/01/2024 3:00 PM EDT Office Visit [facility] [address] [place] [phone] Patty Nelson NP [address] [place] [address] Health Maintenance Due Date Last Done Comments [...] Routine 11/03/2024 11:21 AM EDT Skin tag QUANTIFERON-TB GOLD PLUS Routine 09/07/2024 11:00 AM EDT VARICELLA-ZOSTER V AB, IGG Routine 09/07/2024 11:00 AM EDT HEPATITIS B SURF AB QUANT Routine 09/07/2024 11:00 AM EDT MEASLES/MUMPS/RUBEL LA IMMUNITY Routine 09/07/2024 11:00 AM EDT Q - THINPREP(R) TIS AND HPV MRNA E6/E7 RFL HPV 16,18/45 Routine 04/28/2021 from Last 3 Months or Most Recently Relevant to Health Maintenance Results * Tissue exam (11/03/2024 11:21 AM EDT) PATHOLOGIST [facility] Comment: Daniel Carmen MD Board certified in Dermatopathology, Cytopathology, Anatomic Pathology, and Clinical Pathology (electronic signature) For questions regarding this report call [email or web address] [phone] Pathologist Release Date/Time: 11/07/2024 02:40PM A SOURCE [...] Performing Organization Information Site ID: [id number] Name: [facility] Address: [address] [place] [address], [address] [place] [id number] Director: Daniel Carmen Patty Nelson CUTTING AND PRINTING MACHINE OPERATOR LAB PATHOLOGY ORDERABLES F inal Result Performing Organization Address [facility] de Phone Number [facility] * VARICELLA-ZOSTER V AB, IGG (09/07/2024 11:00 AM EDT) VARICELLA-ZOST ER V AB, IGG Reactive Non Reactive [facility] Comment: Please note reference interval change A Reactive result is considered evidence of immunity to VZV. Reactive indicates that VZV IgG was detected consistent with previous infection and/or vaccination. A Non Reactive result indicates that VZV IgG was not detected suggesting that immunity has not been acquired. Performed at: [address] [id number] Rn Referral: Jacky London PhD, Phone: [phone] 09/07/2024 11:0 0 AM EDT 09/07/2024 11:18 AM EDT Narrative [facility] - 09/08/2024 8:11 AM EDT Marilyn Cain CUTTING AND PRINTING MACHINE OPERATOR LAB BLOOD ORDERABLES Final Re sult Performing Organization Address City/[facility] Co de Phone Number [facility] TB * QUANTIFERON-TB GOLD PLUS (09/07/2024 11:00 AM EDT) QUANTIFERON INCUBATION . TB Comment: Incubation performed. Reference Range: . QUANTIFERON-TB GOLD PLUS Negative Negative TB Comment: No response to M tuberculosis antigens detected. Infection with M tuberculosis is unlikely, but high risk individuals should be considered for additional testing (ATS/IDSA/CDC Clinical Practice Guidelines, 2017). The reference range is an Antigen minus Nil result of <0.35 IU/mL. Chemiluminescence immunoassay methodology Performed at: [facility] [id number] Rn Referral: Jacky London PhD, Phone: [phone] QUANTIFERON CRITERIA Comment . TB Comment: QuantiFERON-TB [...] Narrative [facility] - 09/09/2024 6:08 AM EDT us Marilyn Cain NP LAB BLOOD ORDERABLES Final Re sult [facility] * MEASLES/MUMPS/RUBELLA IMMUNITY (09/07/2024 11:00 AM EDT) RUBELLA ANTIBODIES, IGG 6.03 Immune >0.99 index TB Comment: Non-immune <0.90 Equivocal 0.90 - 0.99 Immune >0.99 MEASLES ANTIBODIES, IGG >300.0 Immune >16.4 AU/mL TB Comment: Negative <13.5 Equivocal 13.5 - 16.4 Positive >16.4 Presence of antibodies to Rubeola is presumptive evidence of immunity except when acute infection is suspected. MUMPS ABS, IGG 65.3 Immune >10.9 AU/mL TBH Comment: Negative <9.0 Equivocal 9.0 - 10.9 Positive >10.9 A positive result generally indicates past exposure to Mumps virus or previous vaccination. Performed at: [address] [id number] Rn Referral: Jacky London PhD, Phone: [phone] 09/07/2024 11:0 0 AM EDT 09/07/2024 11:18 AM EDT Narrative [facility] - 09/08/2024 8:11 AM EDT Marilyn Cain NP LAB BLOOD ORDERABLES Final Re sult Performing Organization Address [facility] de Phone Number [facility] * (ABNORMAL) HEPATITIS B SURF AB QUANT (09/07/2024 11:00 AM EDT) [facility] HEPATITIS B SURF AB QUANT <3.5(A) Immunity>1 0 mIU/mL TB Comment: Status of Immunity Anti-HBs Level Inconsistent with Immunity 0.0 - 10.0 Consistent with Immunity >10.0 Performed at: [address] [id number] Rn Referral: Jacky London PhD, Phone: [phone] 09/07/2024 11:0 0 AM EDT 09/07/2024 11:18 AM EDT Narrative [facility] - 09/08/2024 8:11 AM EDT Marilyn Cain NP LAB BLOOD ORDERABLES Final Re sult Performing Organization Address [facility] de Phone Number [facility] * Q - THINPREP(R) TIS AND HPV [...] computer assisted technology. [facility] MECHANICAL RELIABILITY ENGINEER: SEE NOTE NO [facility] Comment: CYNDEE MEYER(ASCP) CT screening location: [place] [address]. COMMENT SEE NOTE [facility] [...] Detected [facility] Comment: Methodology: Teacher Hearing Impaired-Mediated Amplification This assay detects E6/E7 viral messenger RNA (mRNA) from 14 high-risk HPV types (16,18,31,33,35,39,45,51,52,56,58,59,66,68). The analytical performance characteristics of this assay have been determined by [employer]. The modifications have not been cleared or approved by the FDA. This assay has been validated pursuant to the CLIA regulations and is used for clinical purposes. For additional information, please refer to http://education.BiondVax.Familink/faq/VLE684g4 (This link if provided for information/ educational purposes only.) 04/28/2021 Lara Pop DO [facility] Final Result [facility] from Last 3 Months or Most Recently Relevant to Health Maintenance Additional Health Concerns Active Problems Noted Date Diagnosed Date Patient on antidepressant monitoring plan 2023 Insurance BCBS Care Teams Housing Assistant Relationship Specialty Start Date End Date Shelley Lazo MD PCP - General Family Medicine 07/19/23 Patty Nelson, CUTTING AND PRINTING MACHINE OPERATOR [address] [place] [address] Nurse Practitioner Family Medicine 07/19/23
--- OUTSIDE RECORDS SUMMARY | 2024-11-15 13:54 | XMS_ITS | Encounter Summary ---
Author Organization [facility] Address [address] [place] [address] Care Team Providers Care Health Benefits Specialist Name Role Phone Shelley Lazo MD Primary Care Provider [phone] Patty Nelson LINEN WORKER Unavailable [phone] Encounter Details Date Type Department Care Team (Late st Contact Info) Description 11/03/2024 Bamboo flowsheet [facility] [address] [place] [phone] Patty Nelson NP [address] [place], [place] [phone] Social History Tobacco Use Types Packs/Day Years [...] often do you attend chur ch or jewish services? Never 11/23/2022 Do you belong to any clubs o r organizations such as hindu groups, unions, fraternal or athletic groups, or [...] Recorded Patient Health Questionnaire-2 Score 0 [facility] Questionnaire Answer Date [...] place to sleep or slept in a retirement (including now)? No 11/23/2022 Comments Unknown Sex [...] PM EDT Office Visit [facility] [address] [place] [phone] Patty Nelson NP [address] [place] [address] documented as of this encounter Goals Goal Patient Goal Type Associated Problems Recent Progress Patient-Stated? Author Help patient manage antidepressant medication Care Plan Patient on antidepressant monitoring plan No Patty Nelson LINEN WORKER documented as of this encounter Visit Diagnoses Not on filedocumented in this encounter Additional Health Concerns Active Problems Noted Date Diagnosed Date Patient on antidepressant monitoring plan 2023 Assessment Noted Time PHQ-9 Depression Total Score: 13 024 11:00 AM EST documented as of this encounter Care Teams Health Benefits Specialist Relationship Specialty Start Date End Date Shelley Lazo MD PCP - General Family Medicine 07/19/23 Patty Nelson NP [address] [place] [address] Nurse Practitioner Family Medicine 07/19/23 documented as of this encounter
--- OUTSIDE RECORDS SUMMARY | 2024-11-15 13:54 | XMS_ITS | Encounter Summary ---
Author Organization [facility] Address [address] [place] [address] Care Team Providers Care Railroad Car Cleaning Supervisor Name Role Phone Lara Pop DO Primary Care Provider [phone] Shelley Lazo MD Primary Care Provider Patty Nelson OUTPATIENT CODING SPECIALIST Unavailable [phone] Encounter Details Date Type Department Care Team (Late st Contact Info) Description 12/16/2022 Abstract [facility] [address] [place] [address] Lara Pop DO [address] [facility] [address] [place] [address] Social History Tobacco Use Types [...] How often do you attend chur or cheondoism services? Never 11/23/2022 Do you belong to any clubs o r organizations such as advent groups, unions, fraternal or athletic groups, or [...] Recorded Patient Health Questionnaire-2 Score 0 11/24/2022 [facility] - Occupational Stress Questionnaire Answer Date [...] place to sleep or slept in a alf (including now)? No 11/23/2022 Comments Unknown Sex [...] 12/01/2024 3:00 PM EDT Office Visit [facility] [address] [place] [phone] Patty Nelson NP [address] [place] [address] documented as of this encounter Visit Diagnoses Not on filedocumented in this encounter Care Teams Railroad Car Cleaning Supervisor Relationship Specialty Start Date End Date Lara Pop DO PCP - General Family Medicine 11/19/22 06/24/23 Shelley Lazo MD PCP - General Family Medicine 07/19/23 Patty Nelson NP [address] [place] [address] Nurse Practitioner Family Medicine 07/19/23 documented as of this encounter
[2024-11-15] MEDS: [UNRECOGNIZED DRUG - OTHER] IM (14:02)
== END 2024-11-15 13:51 | disposition home or self-care (01) ==
LOC: VACCLI 13:51
PROVIDERS: Visit Provider Nurse Practitioner Family
DX: Z23 Encounter for immunization (principal)
CPT/HCPCS: 90746